=== PATIENT | male | born 1990 | race African-American/Black ===

== ENCOUNTER 2016-10-29 14:48 | Emergency (ER) | payer SELFPAY ==
[~2016-10-29] VITALS: Ht 175.3 cm; Wt 68.0 kg
[~2016-10-29 14:48] MED LIST: NAPR500 PO; Z.0.NO CURRENT MEDS
[2016-10-29 14:50] VITALS: BP 128/72; PULSE 70; RESP 16; TEMP 98; O2SAT 98
== END 2016-10-29 17:15 | disposition left against medical advice (07) ==
LOC: NED 14:48
DX: R68.89 Other general symptoms and signs (principal)
CPT/HCPCS: 99281